=== PATIENT | male | born 1955 | race Caucasian/White ===

== ENCOUNTER 2017-06-12 06:56 | Day surgery (SDC) | payer OTHER ==
[~2017-06-12 06:56] MED LIST: Buffered Lidocaine 0.9% SYRIN* 5 ML/SYR SYRINGE INTRADERM ONE; Dexamethasone TAB* 4 MG PO ONE; Famotidine IV* 10 MG/ML 2 ML (20 mg) IV ONE; Morphine INJ* 2 MG/ML 1 ML CARPUJECT IV PRN; PROCHLORPERAZINE INJ 5 MG/ML 2 ML VIAL IV PRN; fentaNYL* 50 MCG/ML 2 ML VIAL (100 MCG VIAL) IV PRN
[2017-06-12] MEDS ORDERED: Dexamethasone TAB* 4 MG ONE (07:21)
[2017-06-12] MEDS ORDERED: Famotidine IV* 10 MG/ML 2 ML (20 mg) ONE (07:21)
[2017-06-12] MEDS ORDERED: Lidocaine 4% TOPICAL* 50 ML TOP.SOLN ONE (08:01)
[2017-06-12] MEDS ORDERED: Oxymetazoline 0.05% NASAL SPR* 15 ML BTL ONE (08:01)
[2017-06-12] MEDS ORDERED: Methylene Blue 0.5 %* 50 MG/10 ML AMP IV ONE (08:01)
[2017-06-12] MEDS ORDERED: Atracurium* 10 MG/ML 10 ML VIAL ONE (08:02)
[2017-06-12] MEDS ORDERED: Midazolam* 1 MG/ML 5 ML VIAL (5 MG) ONE (08:02)
[2017-06-12] MEDS ORDERED: KETAMINE HCL* 50 MG/ML 10 ML VIAL ONE (08:02)
[2017-06-12] MEDS ORDERED: fentaNYL* 50 MCG/ML 2 ML VIAL (100 MCG VIAL) ONE (08:02)
[2017-06-12] MEDS ORDERED: EPINEPHrine AMP 1 MG/ML ONE (08:08)
[2017-06-12] MEDS ORDERED: Lidocaine 1% MPF wEPI 200,000* 30 ML SDV ONE (08:08)
[2017-06-12] MEDS ORDERED: Neostigmine Methylsulfate* 2 MG/2 ML SYRINGE ONE (09:12)
[2017-06-12] MEDS ORDERED: Lidocaine 2% PF * 5 ML VIAL ONE (09:12)
[2017-06-12] MEDS ORDERED: Glycopyrrolate IV* 0.2 MG/ML 1 ML VIAL ONE (09:12)
[2017-06-12] MEDS ORDERED: Flumazenil* 0.1 MG/ML 5 ML MDV ONE (09:12)
[2017-06-12] MEDS ORDERED: Propofol* 10 MG/ML 20 ML BTL IV PUSH ONE (09:12)
[2017-06-12] MEDS ORDERED: Ondansetron INJ* 2 MG/ML VIAL ONE (09:12)
[2017-06-12 10:36] VITALS: BP 143/62
--- NOTE | 2017-06-12 10:37 | OP ---
OPERATIVE REPORT: DATE OF OPERATION: 06/12/17 DATE OF : 59 SURGEON: Brian Chaparro MD. PRE-OPERATIVE DIAGNOSIS: Neoplastic lesion of right vocal cord. POST-OPERATIVE DIAGNOSIS: Neoplastic lesion of right vocal cord. OPERATIVE PROCEDURE: Laser excision of right vocal lesion. 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 He would like to proceed with surgical excision. DESCRIPTION OF PROCEDURE: The patient was taken to the operating room, general anesthesia was given . The patient intubated with a laser safe tube. Laser safe precautions were taken including good d raping of the patient correctly with damp sponges. Microscope was utilized , laser at 5 watt, CO2 w as utilized. Larynx was suspended and microscope was utilized. I grasped the right vocal cord, I made a wide excisional resection of the cord into the plane of voc al ligament and then excised it off the vocal ligament all the way from the anterior commissure all the way to about 4-mm from the vocal process of arytenoid, leaving a healthy margin around lesion. Once resection was carried out, the patient awakened and extubated and sent to recovery room in stab le condition. Instrument, sponge count correct. Blood loss minimal. [id number]/[facility] #: [id number]
== END 2017-06-12 10:51 | disposition home or self-care (01) ==
LOC: OR 06:56
PROVIDERS: ATTEND Otolaryngology
DX: C32.0 Malignant neoplasm of glottis (principal); I10 Essential (primary) hypertension; J44.9 Chronic obstructive pulmonary disease, unspecified; F17.200 Nicotine dependence, unspecified, uncomplicated; Z79.82 Long term (current) use of aspirin
CPT/HCPCS: 88305; A9270-GY; J0171; J2001; J2250; J2405; J2704; J3010; J8540

== ENCOUNTER 2018-04-03 10:01 | Emergency (ER) | payer OTHER ==
--- NOTE | 2018-04-03 10:23 | ED ---
Abdominal Pain/Male - HPI Summary HPI Summary: 62 y/o male presents to the ED c/o ABD pain s/p vomiting episode (3-4x 3 mornings ago). Pain located all across the lower ABD. ABD pain initially started after vomiting, lasting 2 days. Pt states his ABD pain is resolved now. Pain not aggravated with food. Denies diarrhea, fever. Pt had similar episode several months ago. PMHx blood clots (under pancreas). - History of Current Complaint Chief Complaint: EDAbdPain Stated Complaint: VOMITING Time Seen by Provider: 04/03/18 10:21 Hx Obtained From: Patient Onset/Duration: Resolved Timing: Lasting Days Pain Intensity: 0 Location: Suprapubic Aggravating Factor(s): Other: - vomiting Alleviating Factor(s): Nothing Associated Signs And Symptoms: Positive: Vomiting. Negative: Fever, Diarrhea - Allergies/Home Medications Allergies/Adverse Reactions: Allergies Allergy/AdvReac Type Severity Reaction Status Date / Time No Known Allergies Allergy Verified 04/03/18 10:17 Home Medications: Home Medications Aspirin EC TAB* [Ecotrin EC Low Dose 81 MG*] 81 mg PO DAILY 04/03/18 [History Confirmed 04/03/18] Atorvastatin* [Lipitor*] 20 mg PO DAILY 04/03/18 [History Confirmed 04/03/18] Hydrochlorothiazide TAB* [Hydrodiuril TAB*] 25 mg PO DAILY 04/03/18 [History Confirmed 04/03/18] Levothyroxine TAB* [Synthroid TAB*] 50 mcg PO DAILY 04/03/18 [History Confirmed 04/03/18] Losartan TAB* [Cozaar TAB*] 100 mg PO DAILY 04/03/18 [History Confirmed 04/03/18 ] Metoprolol Succinate XL TAB* [Toprol XL TAB*] 100 mg PO DAILY 04/03/18 [History Confirmed 04/03/18] Spironolactone TAB* [Aldactone TAB*] 25 mg PO DAILY 04/03/18 [History Confirmed 04/03/18] amLODIPine TAB* [Norvasc 5 mg TAB*] 10 mg PO DAILY 04/03/18 [History Confirmed 04/03/18] PMH/Surg Hx/FS Hx/Imm Hx Previously Healthy: No Endocrine/Hematology History: Reports: Hx Thyroid Disease - HYPO Cardiovascular History: Reports: Hx Hypertension, Other Cardiovascular Problems/ Disorders - HAD CARDIAC CATH 3 YRS AGO, DR THOMPSON Respiratory History: Reports: Other Respiratory Problems/Disorders - HAD PNEUMONIA 3 YRS AGO Musculoskeletal History: Reports: Other Musculoskeletal History - OLD INJURY TO RIGHT LOWER LEG, CHRONIC PAIN, POOR CIRCULATION Sensory History: Reports: Hx Contacts or Glasses - GLASSES Denies: Hx Hearing Aid Opthamlomology History: Reports: Hx Contacts or Glasses - GLASSES - Surgical History Hx Anesthesia Reactions: No Infectious Disease History: No Infectious Disease History: Denies: Traveled Outside the [place] in Last 30 Days - Family History Known Family History: Positive: Unknown - Social History Alcohol Use: Weekly Alcohol Amount: 1-2 DRINKS/WEEK Substance Use Type: Reports: None Smoking Status (MU): Current Every Day Smoker Type: Cigarettes Amount Used/How Often: 1/2/PPD FOR 48 YRS Length of Time of Smoking/Using Tobacco: 48 YRS Have You Smoked in the Last Year: Yes Review of Systems Negative: Fever, Chills Negative: Erythema Negative: Sore Throat Negative: Chest Pain Negative: Shortness Of Breath, Cough Positive: Abdominal Pain, Vomiting. Negative: Nausea Negative: dysuria, hematuria Negative: Myalgia, Edema Negative: Rash Neurological: Other - No dizziness All Other Systems Reviewed And Are Negative: Yes Physical Exam - Summary Physical Exam Summary: Constitutional: Well-developed, Well-nourished, Alert. (-) Distressed Skin: Warm, Dry HENT: Normocephalic; Atraumatic Eyes: Conjunctiva normal Neck: Musculoskeletal ROM normal neck. (-) JVD, (-) Stridor, (-) Tracheal deviation Cardio: Rhythm regular, rate normal, Heart sounds normal; Intact distal pulses; The pedal pulses are 2+ and symmetric. Radial pulses are 2+ and symmetric. (-) Murmur. Capillary refill @ feet < 2 seconds. Pulmonary/Chest wall: Effort normal. (-) Respiratory distress, (-) Wheezes, (-) Rales Abd: Soft, (-), epigastric tenderness, (-) Distension, (-) Guarding, (-) Rebound Musculoskeletal: (-) Edema Lymph: (-) Cervical adenopathy Neuro: Alert, Oriented x3 Psych: Mood and affect Normal Triage Information Reviewed: Yes Vital Signs On Initial Exam: Initial Vitals Temp Pulse Resp BP Pulse Ox 98.2 F 95 16 159/88 97 04/03/18 10:13 04/03/18 10:13 04/03/18 10:13 04/03/18 10:13 04/03/18 10:13 Vital Signs Reviewed: Yes Diagnostics - Vital Signs Vital Signs Temp Pulse Resp BP Pulse Ox 04/03/18 10:13 98.2 F 95 16 159/88 97 - Laboratory Result Diagrams: 04/03/18 11:03 04/03/18 11:03 Lab Statement: Any lab studies that have been ordered have been reviewed, and results considered in the medical decision making process. - CT ABD/PEL CT CT Interpretation: Positive (See Comments) - #. Aortoiliac occlusive disease; Leriche syndrome. Chronic based on extensive collateral arterial network as described. #. Markedly atrophic LEFT kidney likely secondary to chronic arterial insufficiency. #. Colonic diverticulosis without findings of acute diverticulitis. #. No CT stigmata of ischemic bowel. #. Negative for visceral mass lesions or lymphadenopathy. CT Interpretation Completed By: Radiologist - EKG 1 EKG Interpretation: 10:49 - Sinus bradycardia @ 43bpm. PACs. No STEMI Re-Evaluation - Re-Evaluation Second Eval Re-Evaluation Time: 15:40 - the patient's his room, I left a voicemail in the home answering machine to give me a call so that we can further discuss his results. Abdominal Pain Fem Course/Dx - Course Assessment/Plan: Concern for weight loss, histiory clots repeated vomiting. evaluate for malignancy. No pain or tenderness today. Large weight loss over last year, unexplained. Referral to GI for further workup, possible malignancy. Aortic disease known, PCP will f/u and possibly refer to vascular surgery. - Diagnoses Provider Diagnoses: Recurrent vomiting, Aortoiliac occlusive disease Discharge - Discharge Plan Condition: Stable Disposition: HOME Patient Education Materials: Acute Nausea and Vomiting (ED) Referrals: Don Esparza MD [Medical Doctor] - 2 Days (F/U IN 1-2 DAYS) Siva Bennett MD [Medical Doctor] - 4 Days (CALL FOR APPOINTMENT) Additional Instructions: RETURN TO ED FOR CHANGING/WORSENING SYMPTOMS - Billing Disposition and Condition Condition: STABLE Disposition: Home
[2018-04-03 11:21] LABS: ABS Basophils 0.1 10^3/ul (0-0.2); ABS Eosinophils 0.1 10^3/ul (0-0.6); ABS Lymphocytes 3.1 10^3/ul (1.0-4.8); ABS Neutrophils 9.8 10^3/ul (1.5-7.7); ABS Nucleated RBC 0 10^3/ul; Eosinophil % 0.9 % (0-6); Hematocrit 45 % (42-52); Hemoglobin 15.4 g/dl (14.0-18.0); Mean Corpuscular HGB Conc 35 g/dl (31-36); Mean Corpuscular Hemoglobin 32 pg (27-31); Mean Corpuscular Volume 93 fL (80-94); Mean Platelet Volume 9.6 um3 (7.4-10.4); Nucleated Red Blood Cells % 0.1; Platelet Count 297 10^3/ul (150-450); Red Cell Distribution Width 14 % (10.5-15); White Blood Count 14.1 10^3/ul (3.5-10.8)
[2018-04-03 11:32] LABS: EGFR Non-African American 66.9 (>60)
[2018-04-03] MEDS ORDERED: Iohexol 300* (CONTRAST) 10 ML SDV IV ONE (12:45)
--- NOTE | 2018-04-03 13:55 | RAD ---
INDICATION: Low abdominal pain. 50 pound weight loss. Vomiting. COMPARISON: May 17, 2013 chest radiograph. TECHNIQUE: Multidetector CT images were obtained from the lung bases to the ischial tuberosities with 127 mL Omnipaque 300 IV and oral contrast. Multiplanar reformation. REPORT: Minimal dependent atelectasis at the lung bases. Decreased density of the liver relative to the spleen consistent with hepatosteatosis. 0.5 cm hypodense lesion at the RIGHT posterior hepatic segment is low suspicion based on small size. Negative for suspicious focal hepatic lesions. Negative for biliary dilatation. No CT abnormality of the gallbladder. Multiple small pancreatic calcifications likely representing sequela of previous pancreatitis. No suspicious focal pancreatic lesions or ductal dilatation. Small splenule at the hilum of the unremarkable dominant spleen. No CT abnormality of the upper GI, small bowel, or medially extending appendix. Severe diverticulosis primarily involving the descending and sigmoid segments of the colon without findings of acute diverticulitis. Negative for ascites, free air, hernias. Normal adrenal glands. Markedly atrophic LEFT kidney. Delayed LEFT pyelogram. Unremarkable RIGHT kidney. Unremarkable nondilated ureters and distended urinary bladder. Symmetric seminal vesicles. Negative for lymphadenopathy. 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 Occluded bilateral common iliac arteries. Collateral reconstitution of the distal external iliac arteries. Patent celiac axis and superior mesenteric arteries. Evidence for collateral blood flow from the celiac axis through the retroperitoneum to the internal iliac arteries. Negative for suspicious focal osseous lesions. Lumbar sacral spine degenerative spondylosis and facet joint osteoarthritis without suggestion of significant acquired central canal stenosis. IMPRESSION: #. Aortoiliac occlusive disease; Leriche syndrome. Chronic based on extensive collateral arterial network as described. #. Markedly atrophic LEFT kidney likely secondary to chronic arterial insufficiency. #. Colonic diverticulosis without findings of acute diverticulitis. #. No CT stigmata of ischemic bowel. #. Negative for visceral mass lesions or lymphadenopathy.
[2018-04-03 14:35] LABS: Urine Appearance Clear; Urine Blood Negative (Negative); Urine Color Yellow; Urine Ketones Negative (Negative); Urine Protein Negative (Negative); Urine Specific Gravity 1.031 (1.010-1.030); Urine Urobilinogen Negative (Negative)
[2018-04-03 15:26] VITALS: BP 172/91
== END 2018-04-03 15:26 | disposition home or self-care (01) ==
LOC: ED 10:01
DX: R11.10 Vomiting, unspecified (principal); I74.09 Other arterial embolism and thrombosis of abdominal aorta; K57.30 Diverticulosis of large intestine without perforation or abscess without bleeding; N26.1 Atrophy of kidney (terminal); R00.1 Bradycardia, unspecified; I10 Essential (primary) hypertension; E03.9 Hypothyroidism, unspecified; F17.210 Nicotine dependence, cigarettes, uncomplicated; Z86.718 Personal history of other venous thrombosis and embolism; Z79.899 Other long term (current) drug therapy
CPT/HCPCS: 36415; 74177; 80053; 81003; 83605; 83690; 85025; 86140; 93005; 99283; Q9967

== ENCOUNTER 2024-03-31 09:37 | Inpatient (IN) ==
[2024-03-31 10:34] LABS: PCO2 Arterial 25 mmHg (35-45); PO2 Arterial 83 mmHg (80-100)
[2024-03-31 10:36] LABS: Hematocrit 40.6 % (38-53); Hemoglobin 13.1 g/dL (13.2-16.3); Mean Corpuscular Hemoglobin 29.3 pg (27-33); Mean Corpuscular Hgb Conc 32.4 g/dL (31-36); Mean Corpuscular Volume 90.3 fL (80-97); Red Blood Count 4.49 10^6/uL (4.06-5.63); Red Cell Distribution Width 19.4 % (12-17); White Blood Count 12.5 10^3/uL (3.6-10.2)
[2024-03-31 10:45] LABS: INR 1.66 (0.83-1.13)
[2024-03-31 11:13] LABS: ABS Lymphocytes 0.8 10^3/uL (1.0-4.8); ABS Monocytes 0.9 10^3/uL (0.0-1.1); ABS Neutrophils 10.8 10^3/uL (1.5-7.6); Mean Platelet Volume 9.3 fL (7.5-11.2); Platelet Count 314 10^3/uL (150-450)
[2024-03-31 11:45] LABS: Resp Rate 16
[2024-03-31 11:47] LABS: PCO2 Arterial 27 mmHg (35-45); PO2 Arterial 276 mmHg (80-100)
[2024-03-31 11:48] LABS: Albumin 4.5 g/dL (3.2-5.2); Albumin/Globulin Ratio 1.5 (1-3); Calcium 9.3 mg/dL (8.6-10.3); Creatinine, Serum 2.79 mg/dL (0.67-1.17); Potassium 5.8 mmol/L (3.5-5.0); Total Bilirubin 1.7 mg/dL (0.2-1.0); Total Protein 7.5 g/dL (6.4-8.9); eGFR CKD-EPI 24.2 (>60)
[2024-03-31 12:05] LABS: High Sensitivity Troponin 1 Hr 2030 pg/mL (<20)
[2024-03-31 14:15] LABS: Urine Appearance Turbid; Urine Bilirubin Negative (Negative); Urine Blood Negative (Negative); Urine Color Yellow; Urine Glucose Negative (Negative); Urine Ketones Trace (Negative); Urine Nitrite Negative (Negative); Urine Protein 1+ (>=30 mg/dL) (Negative); Urine Specific Gravity 1.028 (1.002-1.030); Urine Urobilinogen 1+ (Negative)
[2024-03-31 14:20] LABS: Urine Bacteria Absent /HPF (Absent); Urine Red Blood Cell Trace(0-2/hpf) /HPF (0-Trace); Urine Squamous Epithelial Cell Present /HPF (Absent); Urine White Blood Cell Trace(0-5/hpf) /HPF (0-Trace)
[2024-03-31] MEDS: Sulfur Hexaflouride MICROSPHR 25 MG VIAL IV ONE (14:29)
[2024-03-31] MEDS: nitroGLYCERIN DRIP 25,000 MCG/250 ML BTL IV SCH (15:18)
[2024-03-31] MEDS: Furosemide 40 mg/4 ml IV VIAL IV ONE (15:18)
[2024-03-31 15:42] LABS: Calcium 9.1 mg/dL (8.6-10.3); Creatinine, Serum 2.89 mg/dL (0.67-1.17); Potassium 5.9 mmol/L (3.5-5.0); eGFR CKD-EPI 23.2 (>60)
[2024-03-31 16:56] LABS: HDL Cholesterol 46.5 mg/dL
[2024-03-31] MEDS: Furosemide 40 mg/4 ml IV VIAL IV SLOW PU ONE ×2 (17:40→22:22)
[2024-03-31] MEDS ORDERED: Albuterol/Ipratropium NEB.SOL (2.5/0.5 MG) 3 ML NEB.SOLN INH PRN (17:49)
[2024-03-31] MEDS: Heparin 5000 UNITS/ML 1 mL VIAL IV SCH (18:04)
[2024-03-31] MEDS: Heparin DRIP 25,000 UNITS BAG 25,000 UNITS/250 ML BAG IV SCH (18:09)
[2024-03-31] MEDS: cefTRIAXone 2 gm/50 mL D5W 2 GM/50 ML BAG IV SCH (18:19)
[2024-03-31] MEDS: Azithromycin 500 mg/250 ml NS 500 MG/250 ML BAG IVPB SCH (19:03)
[2024-03-31 20:42] LABS: Calcium 8.8 mg/dL (8.6-10.3); Creatinine, Serum 2.72 mg/dL (0.67-1.17); Potassium 5.5 mmol/L (3.5-5.0)
[2024-03-31] MEDS ORDERED: Enoxaparin 30 MG/0.3 ML SYR SUBCUT SCH (21:00)
[2024-04-01 04:45] LABS: Hematocrit 32.7 % (38-53); Mean Corpuscular Hemoglobin 29.6 pg (27-33); Mean Corpuscular Hgb Conc 33.6 g/dL (31-36); Mean Corpuscular Volume 88.3 fL (80-97); Mean Platelet Volume 9.5 fL (7.5-11.2); Platelet Count 222 10^3/uL (150-450); Red Cell Distribution Width 19.7 % (12-17); White Blood Count 18.2 10^3/uL (3.6-10.2)
[2024-04-01 05:23] LABS: Calcium 8.6 mg/dL (8.6-10.3); Creatinine, Serum 2.38 mg/dL (0.67-1.17); Potassium 4.6 mmol/L (3.5-5.0); eGFR CKD-EPI 29.3 (>60)
[2024-04-01 06:02] LABS: Albumin 3.7 g/dL (3.2-5.2); Albumin/Globulin Ratio 1.4 (1-3); Globulin 2.6 g/dL (2-4); Magnesium 1.8 mg/dL (1.9-2.7); Phosphorus 3.8 mg/dL (2.5-5.0); Total Bilirubin 0.9 mg/dL (0.2-1.0); Total Protein 6.3 g/dL (6.4-8.9)
[2024-04-01] MEDS: Pantoprazole VIAL 40 MG VIAL IV SCH (08:31)
[2024-04-01] MEDS: Nicotine PATCH 21 MG/24 HR PATCH TRANSDERM SCH (09:57)
[2024-04-01 10:33] LABS: Hepatitis B Surface Antigen Nonreactive (Nonreactive)
[2024-04-01] MEDS: DOXYcycline 100 MG in NS 0.9% 250 ml 250 ML IVPB SCH (10:35)
[2024-04-01 10:38] LABS: Hepatitis A Ab IgM Negative (Negative)
[2024-04-01 10:39] LABS: Hepatitis B Core IgM Nonreactive (Nonreactive)
[2024-04-01] MEDS: Furosemide 40 mg/4 ml IV VIAL IV ONE ×2 (10:41→16:07)
[2024-04-01 10:50] LABS: Hepatitis C Antibody Negative (Negative)
[2024-04-01 12:06] LABS: High Sensitivity Troponin 1 Hr 1255 pg/mL (<20)
[2024-04-01 14:14] LABS: High Sensitivity Troponin 3 Hr 1276 pg/mL (<20)
[2024-04-01] MEDS: SODIUM ZIRCONIUM CYCLOSILICATE 10 GM PACKET PO ONE (14:32)
[2024-04-01 15:52] LABS: Calcium 8.5 mg/dL (8.6-10.3); Creatinine, Serum 2.22 mg/dL (0.67-1.17); Potassium 4.2 mmol/L (3.5-5.0); eGFR CKD-EPI 31.9 (>60)
[2024-04-01] MEDS: guaiFENesin 100 mg/5 ml LIQ unit dose cup PO PRN (20:58)
[2024-04-01] MEDS ORDERED: Pantoprazole VIAL 40 MG VIAL IV SCH (21:00)
[2024-04-02 05:10] LABS: ABS Eosinophils 0.1 10^3/uL (0.0-0.5); ABS Lymphocytes 1.3 10^3/uL (1.0-4.8); ABS Monocytes 0.6 10^3/uL (0.0-1.1); ABS Neutrophils 11.1 10^3/uL (1.5-7.6); Eosinophil % 0.8 %; Hematocrit 30.1 % (38-53); Hemoglobin 10.4 g/dL (13.2-16.3); Lymphocyte % 9.8 %; Mean Corpuscular Hemoglobin 29.8 pg (27-33); Mean Corpuscular Hgb Conc 34.4 g/dL (31-36); Mean Corpuscular Volume 86.6 fL (80-97); Mean Platelet Volume 9.7 fL (7.5-11.2); Platelet Count 199 10^3/uL (150-450); Red Blood Count 3.48 10^6/uL (4.06-5.63); Red Cell Distribution Width 19.2 % (12-17); White Blood Count 13.1 10^3/uL (3.6-10.2)
[2024-04-02 05:46] LABS: Anion Gap 15 mmol/L (2-16); Blood Urea Nitrogen 63 mg/dL (6-24); CO2 Carbon Dioxide 20 mmol/L (22-32); Calcium 8.2 mg/dL (8.6-10.3); Chloride 107 mmol/L (101-111); Creatinine, Serum 2.26 mg/dL (0.67-1.17); Glucose 119 mg/dL (70-100); Sodium 142 mmol/L (135-145); eGFR CKD-EPI 31.2 (>60)
[2024-04-02 07:06] LABS: ALT 1201 U/L (7-52); AST 524 U/L (13-39); Albumin 3.5 g/dL (3.2-5.2); Albumin/Globulin Ratio 1.4 (1-3); Alkaline Phosphatase 79 U/L (35-149); Globulin 2.5 g/dL (2-4); Magnesium 1.8 mg/dL (1.9-2.7); Total Bilirubin 0.7 mg/dL (0.2-1.0)
[2024-04-02] MEDS: Magnesium Sulfate 2 gm BAG 2 GM/50 ML BAG IVPB ONE (09:25)
[2024-04-02] MEDS: Furosemide 40 mg/4 ml IV VIAL IV ONE ×2 (09:26→16:41)
[2024-04-02] MEDS: Furosemide 40 mg/4 ml IV VIAL IV SLOW PU ONE (09:56)
[2024-04-02] MEDS ORDERED: Polyethylene Glycol 3350 17 GM PACKET PO PRN (11:10)
[2024-04-02] MEDS ORDERED: Senna TAB 8.6 mg TAB PO PRN (11:10)
[2024-04-02] MEDS ORDERED: Flumazenil 0.5 mg/5 ml 0.1 MG/ML 5 ml VIAL IV PRN (15:12)
[2024-04-02] MEDS ORDERED: Naloxone 0.4 mg VIAL 0.4 mg/ml 1 ml VIAL IV PUSH PRN (15:12)
[2024-04-02] MEDS ORDERED: Heparin 1,000 UNIT/ML 10 ml (10,000 UNITS) CATHLAB/DIALYSIS ONE (15:24)
[2024-04-02] MEDS ORDERED: Midazolam 5 mg/5 ml VIAL 1 mg/ml 5 ml VIAL (5 mg) ONE (15:24)
[2024-04-02] MEDS ORDERED: fentaNYL 100 mcg/2 ml 50 MCG/ML VIAL ONE (15:24)
[2024-04-02] MEDS ORDERED: nitroGLYCERIN DRIP 25,000 MCG/250 ML BTL ONE (15:25)
[2024-04-02] MEDS ORDERED: Heparin 2 UNITS/ML 1000 mls 2,000 ML IV ONE (15:25)
[2024-04-02] MEDS ORDERED: Iodixanol 320 (CONTRAST) 100 ML SDV ONE (15:26)
[2024-04-02] MEDS ORDERED: Lidocaine 1% MPF 5 ML VIAL ONE (15:26)
[2024-04-02] MEDS ORDERED: niCARdipine 0.1MG/ML IVPREMIX 20 MG/200 ML BAG IV ONE (15:27)
[2024-04-02] MEDS: Midazolam 10 mg/10 ml VIAL 1 mg/ml 10 ml VIAL (10 mg) IV SLOW PU ONE (17:04)
[2024-04-02] MEDS: fentaNYL 100 mcg/2 ml 50 MCG/ML VIAL IV SLOW PU ONE (17:04)
[2024-04-02 17:53] LABS: Calcium 8.3 mg/dL (8.6-10.3); Creatinine, Serum 2.12 mg/dL (0.67-1.17); Potassium 3.9 mmol/L (3.5-5.0); eGFR CKD-EPI 33.7 (>60)
[2024-04-02 17:54] LABS: % Iron Saturation 9 % (15-55); .Transferrin 158 mg/dL (203-362); Iron < 20 ug/dL (50-212); Total Iron Binding Capacity 221 mcg/dL (250-450); Unsaturated Iron Binding 201 ug/dL
[2024-04-02 18:13] LABS: Ferritin 967.7 ng/mL (24-336)
[2024-04-03 05:24] LABS: C Reactive Protein 97.4 mg/L (<8.01); Calcium 8.3 mg/dL (8.6-10.3); Creatinine, Serum 2.08 mg/dL (0.67-1.17); Potassium 3.6 mmol/L (3.5-5.0); eGFR CKD-EPI 34.5 (>60)
[2024-04-03 05:34] LABS: Albumin 3.4 g/dL (3.2-5.2); Albumin/Globulin Ratio 1.4 (1-3); Globulin 2.5 g/dL (2-4); Magnesium 2.1 mg/dL (1.9-2.7); Total Bilirubin 0.6 mg/dL (0.2-1.0); Total Protein 5.9 g/dL (6.4-8.9)
[2024-04-03 06:12] LABS: ABS Basophils 0.1 10^3/uL (0.0-0.1); ABS Eosinophils 0.2 10^3/uL (0.0-0.5); ABS Lymphocytes 1.2 10^3/uL (1.0-4.8); ABS Monocytes 0.6 10^3/uL (0.0-1.1); ABS Neutrophils 6.9 10^3/uL (1.5-7.6); ABS Nucleated RBC 0.01 10^3/ul; Eosinophil % 2.8 %; Hematocrit 28.1 % (38-53); Hemoglobin 9.4 g/dL (13.2-16.3); Lymphocyte % 12.9 %; Mean Corpuscular Hemoglobin 29.2 pg (27-33); Mean Corpuscular Hgb Conc 33.6 g/dL (31-36); Nucleated Red Blood Cells % 0.1 %/100WBC (0.0-0.8); Platelet Count 184 10^3/uL (150-450); Red Blood Count 3.23 10^6/uL (4.06-5.63); Red Cell Distribution Width 18.9 % (12-17); White Blood Count 8.9 10^3/uL (3.6-10.2)
[2024-04-03] MEDS: Furosemide 40 mg/4 ml IV VIAL IV SLOW PU ONE (10:23)
[2024-04-03] MEDS: Potassium Chlor 20 meq TAB.ER PO ONE (10:24)
[2024-04-03] MEDS: Ferric Gluconate IV 250 MG in NS 0.9% 250 ml 200 ML IVPB SCH (10:29)
[2024-04-03] MEDS: Enoxaparin 40 MG/0.4 ML SYR SUBCUT SCH (12:13)
[2024-04-03 12:20] LABS: Cytomegalovirus IgG Antibody Positive (Negative); EBV Capsid Ag IgG Ab Positive (Negative); EBV Capsid Ag IgM Ab Negative (Negative); Epstein-Barr Nuclear Antigen Positive (Negative)
[2024-04-03] MEDS: Polyethylene Glycol 3350 17 GM PACKET PO SCH (15:02)
[2024-04-03] MEDS ORDERED: Dextrose 50% Syringe 50 ml 25 GM/50 ML SYRINGE IV PUSH PRN (22:06)
[2024-04-03] MEDS: Senna TAB 8.6 mg TAB PO SCH (22:21)
[2024-04-04 06:46] LABS: Calcium 8.3 mg/dL (8.6-10.3); Creatinine, Serum 3.57 mg/dL (0.67-1.17)
[2024-04-04 06:47] LABS: Albumin 3.1 g/dL (3.2-5.2); Albumin/Globulin Ratio 1.3 (1-3); Globulin 2.4 g/dL (2-4); Magnesium 2.2 mg/dL (1.9-2.7); Total Bilirubin 0.8 mg/dL (0.2-1.0); Total Protein 5.5 g/dL (6.4-8.9)
[2024-04-04 07:04] LABS: ABS Eosinophils 0.3 10^3/uL (0.0-0.5); ABS Monocytes 0.8 10^3/uL (0.0-1.1); ABS Neutrophils 5.7 10^3/uL (1.5-7.6); Eosinophil % 3.6 %; Hematocrit 29.8 % (38-53); Hemoglobin 10.3 g/dL (13.2-16.3); Lymphocyte % 12.3 %; Mean Corpuscular Hemoglobin 29.9 pg (27-33); Mean Corpuscular Hgb Conc 34.5 g/dL (31-36); Mean Corpuscular Volume 86.8 fL (80-97); Mean Platelet Volume 9.5 fL (7.5-11.2); Platelet Count 191 10^3/uL (150-450); Red Blood Count 3.44 10^6/uL (4.06-5.63); Red Cell Distribution Width 19.2 % (12-17); White Blood Count 7.8 10^3/uL (3.6-10.2)
[2024-04-04 14:24] VITALS: BP 102/55
[2024-04-07 15:53] LABS: Renin 17 ng/mL/h
== END 2024-04-04 17:20 | disposition home or self-care (01) | DRG 280 ==
LOC: ED 09:37 → ICU 12:45 → SUATTDRO 12:45 → EDHOLD 12:45 → ICU 13:52 → MEDTELE 04-02 19:09
PROVIDERS: ADMIT Student in an Organized Health Care Education/Training Program; ATTEND Internal Medicine